=== PATIENT | male | born 1955 | race Two or more races ===

== ENCOUNTER 2022-03-08 13:21 | Emergency (ER) | payer OTHER ==
[~2022-03-08] VITALS: Ht 165.1 cm; Wt 102.9 kg
[2022-03-08] MEDS ORDERED: cefTRIAXone SOD 1,000 MG VL IM ONE (16:00)
[2022-03-08] MEDS ORDERED: methylPREDNISolone SOD SUCC 125 MG/2 ML VL IM ONE (16:00)
[2022-03-08] MEDS ORDERED: AMOX-277 PO (16:59)
[2022-03-08] MEDS ORDERED: LIDO2SOL23 MT (16:59)
[2022-03-08] MEDS ORDERED: PRED20TA2 PO (16:59)
[2022-03-08 17:00] VITALS: BP 165/85
== END 2022-03-08 18:11 | disposition home or self-care (01) ==
LOC: ER 13:21
DX: J03.90 Acute tonsillitis, unspecified (principal); H66.91 Otitis media, unspecified, right ear; K12.1 Other forms of stomatitis; K12.30 Oral mucositis (ulcerative), unspecified
CPT/HCPCS: 87070; 87880; 96372; 99284; J0696; J2930

== ENCOUNTER 2024-12-02 06:48 | Observation (INO) | payer OTHER ==
[~2024-12-02] VITALS: Ht 172.7 cm; Wt 105.3 kg
[~2024-12-02 06:48] MED LIST: ACET-1080 PO; DAPA1TAB4 PO; FURO40TA4 PO; LEVO75TA6 PO; LOSA-535 PO; METO-289 PO; NAPR-957 PO; PANT40TA2 PO
[2024-12-02] MEDS: ceFAZolin 2 GM/D5W50ml 50 ML IV ONE (07:21)
[2024-12-02] MEDS: CELECOXIB 100 MG CAP PO ONE (08:00)
[2024-12-02] MEDS: PREGABALIN CAPSULE 75 MG CAP PO ONE (08:00)
[2024-12-02] MEDS: ACETAMINOPHEN IV 1000 MG/100ML (10MG/ML) IV ONE (08:00)
[2024-12-02] MEDS: BUPIVACAINE HCL 50 ML ONE (09:03)
[2024-12-02] MEDS ORDERED: TRANEXAMIC ACID 20 ML ONE (10:14)
[2024-12-02] MEDS ORDERED: MORPHINE SULFATE INJ 2 MG/ml SYRG IV PRN (10:15)
[2024-12-02] MEDS ORDERED: HYDROmorphone HCL 2 MG/ML VL/or syr IV PRN (10:15)
[2024-12-02] MEDS: ceFAZolin 1GM/50ML 50 ML IV SCH (10:15)
[2024-12-02] MEDS ORDERED: ONDANSETRON HCL 4 MG/2 ML VIAL IV PRN ×2 (10:15→12:00)
[2024-12-02] MEDS ORDERED: NITROGLYCERIN 0.4 MG SL TAB SL PRN (10:15)
[2024-12-02] MEDS: LACTATED RINGER'S 1,000 ML IV SCH (10:15)
[2024-12-02] MEDS ORDERED: fentaNYL CITRATE 100 MCG/2 ML VL ONE (10:18)
[2024-12-02] MEDS: CEFEPIME 1GM/ 50ML 50 ML IV ONE (10:18)
[2024-12-02] MEDS ORDERED: MIDAZOLAM HCL 2MG/2ML 2ml VIAL (1mg/ml) ONE (10:18)
[2024-12-02] MEDS ORDERED: MORPHINE SULF PF 5 MG/10 ML VIAL ONE (10:18)
[2024-12-02] MEDS ORDERED: ONDANSETRON HCL 4 MG/2 ML VIAL ONE (10:24)
[2024-12-02] MEDS ORDERED: DexAMETHasone SOD PHOS 10MG/1ML VIAL INJ ONE (10:24)
[2024-12-02] MEDS ORDERED: PROPOFOL 10 MG/ML 20 ML IV ONE (10:40)
[2024-12-02] MEDS: MORPHINE SULF PF 5 MG/10 ML VIAL ONE (10:43)
[2024-12-02] MEDS: VANCOMYCIN HCL 1000 MG VL ONE (10:43)
[2024-12-02] MEDS: BUPIVACAINE 0.25% INJ 50ML VIAL ONE (10:43)
[2024-12-02] MEDS: KETOROLAC TROMETH 30 MG/ML 1ML VIAL ONE (10:43)
[2024-12-02] MEDS ORDERED: ePHEDrine SULFATE 50 MG/ML AMP ONE (11:11)
[2024-12-02] MEDS: ACCU-CHEK COMFORT CURVE STRIP VI SCH (11:30)
[2024-12-02 11:50] VITALS: PULSE 80; RESP 8; O2SAT 92
[2024-12-02] MEDS ORDERED: KETOROLAC TROMETH 30 MG/ML 1ML VIAL IV PRN (12:00)
[2024-12-02] MEDS ORDERED: diphenhdrAMINE HCL 50 MG/1 ML VL IV PRN (12:00)
[2024-12-02] MEDS ORDERED: NALOXONE HCL 0.4 MG/ML VIAL IV PRN (12:00)
[2024-12-02] MEDS ORDERED: DexAMETHasone SOD PHOS 10MG/1ML VIAL INJ IV PRN (12:00)
--- NOTE | 2024-12-02 12:57 | DVH ---
CLINICAL INDICATION: Pain; S/P SURGERY TECHNIQUE: 3 radiographic views of the left knee were obtained. Comparison: None FINDINGS/IMPRESSION: Postsurgical changes from left knee arthroplasty.
[2024-12-02] MEDS: SODIUM CHLOR 0.9% PF (SALINE LOCK) 10ML VIAL/SYR IV SCH (14:00)
[2024-12-02 14:21] VITALS: PULSE 76; RESP 18; O2SAT 94
--- NOTE | 2024-12-02 16:57 | DVHINCON2 ---
Date Seen: Dec 02, 2024 Referring Physician Orthopedic surgery. Reason for Consultation Medical management. History of Present Illness 68-year-old male with a known history of diabetes mellitus type 2, hypertension, hypothyroidism initially present with the hospital for elective surgery for left knee degenerative joint disease. Patient underwent status post left total knee arthroplasty. Post operative patient is doing fairly well. Past Medical History Diabetes mellitus type 2 Hypertension Hypothyroidism Past Surgical History Right knee total arthroplasty Allergies: Coded Allergies: NO KNOWN ALLERGIES (Unverified , 11/29/24) Home Meds Reported Medications Naproxen (Naproxen) 375 Mg Tab, 375 MG PO, TAB 11/29/24 Acetaminophen (Tylenol 8 Hour Arthritis) 650 Mg Tab, 650 MG PO PRN, TAB 11/29/24 Metoprolol Succinate (Metoprolol Succinate Er) 50 Mg Tab, 50 MG PO QAM, TAB 11/29/24 Losartan Potassium (Losartan Potassium) 100 Mg Tab, 100 MG PO DAILY, TAB 11/29/24 Levothyroxine Sodium (Levothyroxine Sodium) 75 Mcg Tab, 75 MCG PO DAILY, TAB 11/29/24 Pantoprazole Sodium Sesquihydr (Protonix) 40 Mg Tab, 40 MG PO DAILY, #30 TAB 11/29/24 Dapagliflozin Propanediol (Farxiga) 10 Mg Tab, 10 MG PO DAILY, TAB 11/29/24 Furosemide (Furosemide) 40 Mg Tab, 40 MG PO DAILY, TAB 11/29/24 Current Medications Current Medications Medications (Trade) Dose Ordered Sig/Dirk Route PRN Reason Start Time Stop Time Status Last Admin Furosemide (Lasix Tablet) 40 mg DAILY PO 12/03/24 10:00 Metoprolol Succinate (Toprol Xl) 50 mg QAM PO 12/03/24 07:00 Pantoprazole Sodium (Protonix Tablet) 40 mg DAILY PO 12/03/24 10:00 Empaglifozin (Jardiance) 10 mg DAILY PO 12/03/24 10:00 Levothyroxine Sodium (Synthroid Tablet) 75 mcg QAM PO 12/03/24 07:00 Losartan Potassium (Cozaar Tablet) 100 mg DAILY PO 12/03/24 10:00 Lactated Ringer's 1,000 ml @ 100 mls/hr Q10H IV 12/02/24 10:15 12/02/24 10:15 Sodium Chloride (Saline Lock Ns) 10 ml Q8HR IV 12/02/24 14:00 12/02/24 14:00 Cefazolin Sodium 50 ml @ 50 mls/hr Q6H IV 12/02/24 10:15 12/02/24 23:14 12/02/24 16:55 Oxycodone/ Acetaminophen (Percocet 5/ 325MG Tablet) 1 tab Q4HP PRN PO MODERATE PAIN 12/02/24 10:15 Hydromorphone HCl (Dilaudid Injection) 1 mg Q2HP PRN IV SEVERE PAIN (7-10 PAIN SCALE) 12/02/24 10:15 Oxycodone HCl (OxyCONTIN ER Tablet) 10 mg Q12HR PO 12/02/24 22:00 Ondansetron HCl (Zofran) 4 mg Q6HP PRN IV NAUSEA / VOMITING 12/02/24 10:15 Docusate Sodium (Colace Capsule) 100 mg Q12HR PO 12/02/24 22:00 Diagnostic Test (Pha) (Accu-Chek Comfort Curve T) 1 strip ACHS 12/02/24 11:30 12/02/24 11:30 Enoxaparin Sodium (Lovenox) 40 mg DAILY SC 12/03/24 10:00 Nitroglycerin (Ntrostat Sublingual) 0.4 mg Q5MINP PRN SL FOR CHEST PAIN 12/02/24 10:15 Morphine Sulfate 2 mg Q30M PRN IV FOR CHEST PAIN 12/02/24 10:15 Diphenhydramine HCl (Benadryl Injection) 25 mg Q4HP PRN IV FOR ITCHING 12/02/24 12:00 Ondansetron HCl (Zofran) 4 mg Q4HP PRN IV NAUSEA / VOMITING 12/02/24 12:00 Naloxone HCl (Narcan) 0.2 mg Q5M PRN IV For respirations < than 10/min 12/02/24 12:00 12/02/24 12:41 DC Dexamethasone Sodium Phosphate (Decadron Injection) 10 mg [employer] ELECTRICAL ENGINEER PRN IV FOR ITCHING 12/02/24 12:00 12/02/24 12:41 DC Ketorolac Tromethamine (Toradol Injection) 30 mg Q6HP PRN IV MODERATE PAIN (4-6 PAIN SCALE) 12/02/24 12:00 12/07/24 11:59 Hold Review of Systems 12 review of system were negative except mentioned above. 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 1. Diabetes mellitus type 2 2. Hypertension 3. Hypothyroidism 4. Degenerative joint disease of the left knee status postRight TKA -pain meds as needed, PT evaluation and treatment DVT GI prophylaxis. Plan discussed with: Patient Date of Service: Dec 02, 2024 Billing Provider: CORINE COVARRUBIAS MD Common Visit Codes: NOT BILLABLE CORINE COVARRUBIAS MD Dec 02, 2024 16:56
[2024-12-02 17:00] VITALS: BP 135/80; PULSE 98; RESP 18; TEMP 98.6; O2SAT 96
[2024-12-02 20:00] VITALS: PULSE 93; RESP 16; O2SAT 96
[2024-12-02 21:00] VITALS: BP 152/76; PULSE 88; RESP 18; TEMP 98.4; O2SAT 95
[2024-12-02] MEDS: DOCUSATE SOD 100 MG CAP PO SCH (21:51)
[2024-12-02] MEDS: oxyCODONE ER 10 MG TAB PO SCH (21:57)
[2024-12-03] VITALS (8 sets, daily range): BP systolic 112–149; BP diastolic 58–82; PULSE 69–89; RESP 18–20; TEMP 97.7–98.8; O2SAT 94–98
[2024-12-03] MEDS: LEVOTHYROXINE SODIUM 25 MCG TAB PO SCH (06:13)
[2024-12-03] MEDS: METOPROLOL SUCCINATE XL 50 MG TAB PO SCH (06:14)
[2024-12-03 07:50] LABS: Hemoglobin 13.6 g/dL (13.5-17.5)
--- NOTE | 2024-12-03 07:59 | DVHOP2 ---
Operative Report - 2 Report Details Date: 12/02/24 Preop Diagnosis: Left knee osteoarthritis Postop Diagnosis: as above Surgeon: Junior Tan MD Sample Book Maker: Reynaldo MON Anesthesiologist: Carlo BENSON Anesthesia: Regional Implant: [employer] uncemented knee Legion Size 5 femur Size 5 tibia 9 CR poly 32 mm patella Consent: The patient was informed of the risks and benefits of the procedure. These include but are not limited to complications of anesthesia, postoperative infection, incomplete relief of symptoms, recurrence of symptoms, damage to blood vessels, nerves and tendons, deep venous thrombosis, pulmonary embolism and possible need for repeat surgery in the future. Estimated Blood Loss: 50 cc Name of Procedure Performed Left total knee arthroplasty using computer navigation Procedure Details Procedure Details: FINDINGS: Extensive degenerative disease with grade IV changes INDICATION: This patient has failed non-operative treatments for knee arthritis and is now indicated for a total knee replacement. Preoperatively in the waiting area as well as in the office, I had a long discussion with the patient regarding the plan, the expected outcome, the risks, benefits, and alternatives of surgery. The risks include, but are not limited to, infection (which may require future surgery and removal of implants) , bleeding (which may require a transfusion), damage to nerves, arteries, veins, tendons, muscles and other adjacent structures. Also discussed the possibilities of intraoperative fractures, implant loosening, heterotopic bone formation, and revision for variety of reasons, and medical complications etc. This was discussed at length and consent has been obtained. DESCRIPTION OF PROCEDURE: In the preoperative holding area, the consent was reviewed and the appropriate extremity was verified by the patient and marked with my initials. The patient was then transferred to the operating theatre. Appropriate anesthesia was induced. All bony prominences were well padded. A time out was performed verifying the side and site of surgery according to standard protocol. Preoperative antibiotics were given 10 minutes prior to tourniquet inflation. Tranexamic acid was given. A well padded thigh tourniquet was applied. The extremity was then prepped and draped in the usual sterile fashion. The extremity was exsanguinated and the tourniquet was inflated. We then made a mid-line incision, which we continued to the underlying capsular tissue. We performed a medial parapatellar arthrotomy. We periosteally exposed the proximal tibia, excised the anterior fat pad and synovium from the distal aspect of the femur. We then subluxed the patella and brought the knee up into flexion. The lateral meniscus, ACL were released. We used the appropriate guide with attached computer navigation to secure the distal femoral cutting block to the femur with pins and completed the distal femoral cut in 0 degrees to the mechanical axis with an oscillating saw. We removed the distal femoral cutting block and turned our attention to the tibia. We used the extramedullary tibial alignment guide with computer navigation to secure the proximal tibial cutting block to the tibia with pins, setting it for a 2 mm cut from the more involved side, and completed the proximal tibial cut. We then used the spacer block and alignment grace to check the varus-valgus angle of our cuts and the extension gap. The knee was then balanced in extension to varus/valgus stress. We marked our femoral anatomy, including [place]'s line and the epicondylar axis. Using that as a rotational guide, we used the sizing guide to size our femur properly, using a stylus to ensure there would be no notching. We then used the AP cutting guide to make our anterior and posterior cuts and chamfer cuts with an oscillating saw. We again checked the flexion and extension gaps and coronal balancing. Next, we sized our tibia and secured a baseplate with appropriate rotation with pins. We placed a trial femur in position and compl eted preparation of the notch with reamers and box osteotome and placed a trial notch in position. We used trials to choose our liner size and then placed the liner in place and reduced the knee. We used an oscillating saw to resurface the patella, and used a guide to choose the button size and completed patella preparation with the drill. We then placed a trial button in place. At this point, we checked our seven parameters: 1) Limb alignment 2) Extension 3) Flexion against gravity 4) Flexion stability 5) Varus-valgus balancing 6) Component rotation 7) Patella tracking We were satisfied with these and removed all trials with the exception of the baseplate. We completed preparation of the tibia with the appropriate reamer and keel impactor and then removed the baseplate. We placed a bone plug in the distal femur and then irrigated and dried all bony surfaces and injected our pain cocktail. We impacted our tibial, femoral and patellar components into position. We impacted our liner and reduced the knee and held it with axial loading. We released the tourniquet and achieved hemostasis where necessary. A dilute betadine solution (17.5mL in 500mL saline) was used to wash the joint and left to sit for 3 minutes. This was then irrigated out with copious amounts of pulse lavage. We sprinkled 1g vancomycin powder below the fascia and 1g above the fascia. We copiously irrigated the knee. We re-checked our seven parameters. We closed our capsular incision with a PDS style suture. We irrigated further. We closed the subcutaneous tissue with Vicryl suture and re- approximated the skin with mela. We verified all lower extremity compartments were soft and compressible and that we had intact distal pulses. We wrapped the extremity in sterile Webril and shawn bandage. The patient was transferred to the recovery room in stable condition. Condition Good Disposition Still a Patient JUNIOR TAN MD Dec 03, 2024 07:59
--- NOTE | 2024-12-03 08:06 | DVHPN2 ---
Progress Note Date Seen: Dec 03, 2024 Medical Necessity Reason Pt with a Central, PICC or Fol: No Subjective Patient reports: No new complaints Objective vital signs Vital Sign Date Time Temp Pulse Resp B/P (MAP) Pulse Ox O2 Delivery O2 Flow Rate FiO2 12/03/24 06:14 78 142/72 12/03/24 05:00 98.6 18 94 98.6 12/02/24 20:00 Nasal Cannula* 3 32 Total Intake and Output 12/02/24 12/02/24 12/03/24 15:00 23:00 07:00 Intake Total 100 ml 605 ml 1400 ml Output Total 0 ml Balance 100 ml 605 ml 1400 ml medications Current Medications Medications Dose Ordered Sig/Dirk Route Start Time Stop Time Status Last Admin Dose Admin Furosemide 40 mg DAILY PO 12/03/24 10:00 Metoprolol Succinate 50 mg QAM PO 12/03/24 07:00 12/03/24 06:14 50 MG Pantoprazole Sodium 40 mg DAILY PO 12/03/24 10:00 Empaglifozin 10 mg DAILY PO 12/03/24 10:00 Levothyroxine Sodium 75 mcg QAM PO 12/03/24 07:00 12/03/24 06:13 75 MCG Losartan Potassium 100 mg DAILY PO 12/03/24 10:00 Lactated Ringer's 1,000 ml @ 100 mls/hr Q10H IV 12/02/24 10:15 12/03/24 06:15 100 MLS/HR Sodium Chloride 10 ml Q8HR IV 12/02/24 14:00 12/03/24 06:19 10 ML Oxycodone/ Acetaminophen 1 tab Q4HP PRN PO 12/02/24 10:15 Hydromorphone HCl 1 mg Q2HP PRN IV 12/02/24 10:15 Oxycodone HCl 10 mg Q12HR PO 12/02/24 22:00 Ondansetron HCl 4 mg Q6HP PRN IV 12/02/24 10:15 Docusate Sodium 100 mg Q12HR PO 12/02/24 22:00 12/02/24 21:51 100 MG Diagnostic Test (Pha) 1 strip ACHS 12/02/24 11:30 12/03/24 06:21 1 STRIP Enoxaparin Sodium 40 mg DAILY SC 12/03/24 10:00 Nitroglycerin 0.4 mg Q5MINP PRN SL 12/02/24 10:15 Morphine Sulfate 2 mg Q30M PRN IV 12/02/24 10:15 Diphenhydramine HCl 25 mg Q4HP PRN IV 12/02/24 12:00 Ondansetron HCl 4 mg Q4HP PRN IV 12/02/24 12:00 Ketorolac Tromethamine 30 mg Q6HP PRN IV 12/02/24 12:00 12/07/24 11:59 Hold Examination: GENERAL:Normal, MSK:Abnormal laboratory and microbiology Laboratory Tests 12/03/24 07:22 Test 12/03/24 07:22 Range/Units Serum Glucose Pending Problem List/Assessment/Plan Problem List/Assessment/Plan 68 year old male who is s/p left TKA POD 1 1. WBAT with walker 2. Physical therapy 3. CPM as ordered 4. DVT ppx 5. pain control 6. aids social worker consult as patient requires SNF placement for recovery Plan discussed with: Patient Date of Service: Dec 03, 2024 Billing Provider: LULÚ TAN MD Common Visit Codes: NOT BILLABLE DEMETRI DUPREE NP Dec 03, 2024 08:06
[2024-12-03 08:12] LABS: Alanine Aminotransferase 13 U/L (7-40); Alkaline Phosphatase 73 U/L (46-116); Anion Gap 7 (5-15); Aspartate Aminotransferase 15 U/L (13-40); BUN/Creatinine Ratio 19.8 (10.0-20.0); Bilirubin, Total 1.1 mg/dL (0.2-1.0); Calcium 9.3 mg/dL (8.7-10.4); Carbon Dioxide 27 mmol/L (20-31); Chloride 103 mmol/L (98-107); Potassium 4.6 mmol/L (3.5-5.1); Sodium 137 mmol/L (136-145); Total Protein 6.5 g/dL (5.7-8.2)
[2024-12-03 08:18] LABS: Blood Urea Nitrogen 26 mg/dL (9-23); Glucose 117 mg/dL (74-106)
[2024-12-03] MEDS: EMPAGLIFLOZIN 10 MG TAB PO SCH (10:31)
[2024-12-03] MEDS: LOSARTAN POTASSIUM 50 MG TAB PO SCH (10:32)
[2024-12-03] MEDS: PANTOPRAZOLE 40 MG TAB PO SCH (10:33)
[2024-12-03] MEDS: ENOXAPARIN SOD 40 MG/0.4 ML SYRINGE SC SCH (10:33)
[2024-12-03] MEDS: FUROSEMIDE 40 MG TAB PO SCH (10:33)
[2024-12-03] MEDS: OXYCODONE W/ ACETAMINOPHEN 5/325MG TABLET PO PRN (15:25)
--- NOTE | 2024-12-03 16:50 | DVHDS2 ---
Discharge Summary Date of Admission Dec 02, 2024 at 10:14 Date of Discharge: Dec 03, 2024 Labs/Diagnostic Data: Laboratory Results Test 12/03/24 07:22 12/03/24 05:50 Hemoglobin 13.6 g/dL (13.5-17.5) Hematocrit 41.0 % (41.0-53.0) Sodium Level 137 mmol/L (136-145) Potassium Level 4.6 mmol/L (3.5-5.1) Chloride Level 103 mmol/L (98-107) Carbon Dioxide Level 27 mmol/L (20-31) Anion Gap 7 (5-15) Blood Urea Nitrogen 26 mg/dL (9-23) Creatinine 1.31 mg/dL (0.700-1.30) Glomerular Filtration Rate Calc 59 mL/min (>90) BUN/Creatinine Ratio 19.8 (10.0-20.0) Serum Glucose 117 mg/dL (74-106) Calcium Level 9.3 mg/dL (8.7-10.4) Total Bilirubin 1.1 mg/dL (0.2-1.0) Aspartate Amino Transferase (AST) 15 U/L (13-40) Alanine Aminotransferase (ALT) 13 U/L (7-40) Alkaline Phosphatase 73 U/L (46-116) Total Protein 6.5 g/dL (5.7-8.2) Albumin 4.0 g/dL (3.2-4.8) POC Glucose 131 mg/dl (70-106) Other Laboratory Tests 12/03/24 07:22 Brief Hx & Hospital Course: 68-year-old male with a known history of diabetes mellitus type 2, hypertension, hypothyroidism, degenerative joint disease of the left knee initially presented to the hospital for elective surgery. Patient underwent left knee status post left total knee arthroplasty. Patient does have known history of diabetes mellitus type 2 hypertension dyslipidemia and hypothyroidism. Patient was cleared by Orthopedics to be discharged. Patient is being discharged to snf facility once elementary school social worker arrangements bed. Patient being discharged under stable condition. Condition at Discharge: Good Final Diagnosis/Problems List 68-year-old male with a known history of diabetes mellitus type 2, hypertension, hypothyroidism, degenerative joint disease of the left knee initially presented to the hospital for elective surgery. 1. Diabetes mellitus type 2 2. Hypertension 3. Hypothyroidism 4. Degenerative joint disease of the left knee status postRight TKA -pain meds as needed, PT evaluation and treatment DVT GI prophylaxis. Discharge Disposition: [facility] Discharge Instruct/Medications Diet: Cardiac 2g Na,low cholest Diet comment: 1999 ADA diet Activity: See Comment Activity comment: Weight-bearing left lower extremity as tolerated. Follow Up/Referral: Follow up with the PCP in one week Follow up with the Orthopedics in one week Medications: Resume home medications, DVT prophylaxis with the Lovenox. Discharge Statement: "Patient was advised to return to the ER or call 911 if any headaches, dizziness, shortness of breath, chest pain, abdominal pain, bleeding, fevers, or worsening of medical condition. Patient was counseled about treatment plan, medications, possible side effects, patientverbalized understanding. All questions were answered to the best of my ability. This discharge took greater then 30 minutes in planning, reviewing documentation, counseling the patient, and discussing with other team members." ASSESSMENT ASSESSMENT Assessment 68-year-old male with a known history of diabetes mellitus type 2, hypertension, hypothyroidism, degenerative joint disease of the left knee initially presented to the hospital for elective surgery. 1. Diabetes mellitus type 2 2. Hypertension 3. Hypothyroidism 4. Degenerative joint disease of the left knee status postRight TKA -pain meds as needed, PT evaluation and treatment DVT GI prophylaxis. Date of Service: Dec 03, 2024 Billing Provider: CORINE COVARRUBIAS MD Common Visit Codes: NOT BILLABLE CORINE COVARRUBIAS MD Dec 03, 2024 16:50
== END 2024-12-03 22:52 ==
LOC: SUR 06:48 → OVERFLOW 10:14 → TELE-WESTW 13:30
PROVIDERS: ADMIT Orthopaedic Surgery Adult Reconstructive Orthopaedic Surgery; ATTEND Orthopaedic Surgery Adult Reconstructive Orthopaedic Surgery
DX: M17.12 Unilateral primary osteoarthritis, left knee (principal); M17.11 Unilateral primary osteoarthritis, right knee; I10 Essential (primary) hypertension; E11.9 Type 2 diabetes mellitus without complications; E03.9 Hypothyroidism, unspecified; E78.5 Hyperlipidemia, unspecified; Z79.899 Other long term (current) drug therapy; Z98.890 Other specified postprocedural states
CPT/HCPCS: 27447; 36415; 73562; 80053; 82962; 85014; 85018; 86850; 86900; 86901; 96365; 96366; 96372; 97163; C1776; G0378; J0690; J0692; J1100; J1650; J1885; J2250; J2270; J2405; J2704; J3010; J3370; J3490; J0131